=== PATIENT | female | born 1975 | race Two or more races ===

== ENCOUNTER 2023-02-28 20:39 | Emergency (ER) | payer OTHER ==
[2023-02-28 20:52] VITALS: BP 138/88; PULSE 59; RESP 16; TEMP 98.2; BMI 22.6
[2023-02-28] MEDS ORDERED: ACETAMINOPHEN 500 MG TABLET (FP) PO ONE (20:54)
[2023-02-28] MEDS ORDERED: ACETAMINOPHEN 500 MG TABLET (FP) ONE (20:56)
== END 2023-02-28 21:57 | disposition home or self-care (01) ==
LOC: FER 20:39
DX: S93.602A Unspecified sprain of left foot, initial encounter (principal); M79.672 Pain in left foot; M79.89 Other specified soft tissue disorders; X50.9XXA Other and unspecified overexertion or strenuous movements or postures, initial encounter; Y93.E9 Activity, other interior property and clothing maintenance; Y92.098 Other place in other non-institutional residence as the place of occurrence of the external cause
CPT/HCPCS: 70450-TC; 99284-25